=== PATIENT | male | born 1950 | race Caucasian/White ===

== ENCOUNTER 2018-02-19 06:45 | Day surgery (SDC) | payer OTHER, BC ==
[2018-02-19 07:17] VITALS: BMI 38.4
[2018-02-19] MEDS ORDERED: LIDOCAINE HCL/PF 2% SDV 5ML VIAL ONE (07:46)
[2018-02-19] MEDS ORDERED: SUCCINYLCHOLINE CHLORIDE 200 MG/10 ML VIAL ONE (07:46)
[2018-02-19] MEDS ORDERED: PROPOFOL 20 ML ONE ×5 (07:46)
[2018-02-19 08:28] VITALS: TEMP 98.6
[2018-02-19 15:47] VITALS: BP 127/66; PULSE 75
--- NOTE | 2018-02-20 16:22 | PATH ---
Surgical Pathology Report Patient Name: LISA NEW [facility]. Rec. #: [id number] /Age/Gender: 1950 (Age: 67) / M Account: [id number] Location: U-ENDOSCOPY Taken: 02/19/2018 Received: 02/19/2018 Reported: 02/20/2018 Physicians: Leonard Ceja M.D. Specimen(s) Received A: BX CECUM POLYP B: BX ILEOCECAL VALVE POLYP Clinical History Screening, colon polyp Final Diagnosis A. CECUM, POLYP, POLYPECTOMY: TUBULAR ADENOMA. B. ILEOCECAL VALVE, POLYP, POLYPECTOMY: TUBULAR ADENOMA. Electronically Signed Na Collado M.D. Gross Description A. Received in formalin, labeled "biopsy polyp from cecum" is a givens, irregular portion of soft tissue measuring 0.3 cm. in greatest dimension. The specimens are submitted in toto in one cassette. B. Received in formalin, labeled "polyp on ileocecal valve" are 5 givens, irregular portions of soft tissue measuring 0.4 cm. in greatest dimension. The specimens are submitted in toto in one cassette. __ KWS/02/19/2018 sulki/02/19/2018
== END 2018-02-19 09:25 | disposition home or self-care (01) ==
LOC: JASU-ENDO 06:45
PROVIDERS: ATTEND Internal Medicine Gastroenterology
PROC: 0DBH8ZX Excision of Cecum, Via Natural or Artificial Opening Endoscopic, Diagnostic (ICD-10-PCS; 2018-02-19)
PROC: 0DBC8ZX Excision of Ileocecal Valve, Via Natural or Artificial Opening Endoscopic, Diagnostic (ICD-10-PCS; principal; 2018-02-19 08:00)
DX: Z12.11 Encounter for screening for malignant neoplasm of colon (principal); K57.30 Diverticulosis of large intestine without perforation or abscess without bleeding; D12.0 Benign neoplasm of cecum
CPT/HCPCS: 88305-TC